=== PATIENT | female | born 1975 | race Asian ===

== ENCOUNTER 2020-03-01 10:41 | Outpatient (CLI) | payer BC, SELFPAY ==
--- NOTE | 2020-03-01 11:00 | US_ITS ---
WS: [id number] RIGHT UPPER QUADRANT ULTRASOUND HISTORY: Generalized abdominal pain. COMPARISON: None available. Liver: 11.3 cm in length. Normal size and echogenicity with no intrahepatic dilatation. No mass. Gallbladder: Normally distended gallbladder with no stones or wall thickening. CBD: 0.5 cm Pancreas: Normal size and echogenicity. Right kidney: 10.5 cm in length. Normal echogenicity with no mass or hydronephrosis. Aorta and IVC: Unremarkable. No ascites. US/US gall bladder [id number] IMPRESSION: Normal RIGHT upper quadrant ultrasound.
== END 2020-03-01 10:42 | disposition home or self-care (01) ==
LOC: RADWPI 10:49
PROVIDERS: Family Provider Family Medicine; Visit Provider Internal Medicine
DX: R10.84 Generalized abdominal pain
CPT/HCPCS: 76705

== ENCOUNTER → 2020-08-29 11:06 | Outpatient (BNVA) | payer SELFPAY | PROVIDERS: Family Provider Family Medicine; Visit Provider Obstetrics & Gynecology | DX: R30.0 Dysuria (principal) | CPT/HCPCS: 80053; 81000; 87077; 87186 ==